=== PATIENT | male | born 1970 | race Caucasian/White ===

== ENCOUNTER 2025-02-13 06:26 | Day surgery (SDC) | payer BC ==
[2025-02-10 11:19] VITALS: BMI 26.3
[2025-02-13] MEDS ORDERED: Bupivacaine HCl 0.5%/Epinephrine 1:200,000/PF 30 ml Vial ONE (09:17)
[2025-02-13] MEDS ORDERED: CEFAZOLIN 2 GM VIAL ONE (09:18)
[2025-02-13] MEDS ORDERED: Lidocaine 1% PF 5 ML VIAL ONE (09:37)
[2025-02-13] MEDS ORDERED: Rocuronium Bromide 10 MG/ML (10ML VIAL) ONE (09:37)
[2025-02-13] MEDS ORDERED: PROPOFOL 20 ML ONE (09:37)
[2025-02-13] MEDS ORDERED: Ondansetron PF 4 MG/2 ML Vial ONE (09:37)
[2025-02-13] MEDS ORDERED: SUGAMMADEX SODIUM 200 MG/2 ML VIAL ONE (10:00)
[2025-02-13] MEDS ORDERED: Meperidine HCl/PF 25 MG (1 mL) VIAL ONE (12:05)
[2025-02-13] MEDS ORDERED: HYDROcodone/Acetaminophen 5/325 mg Tablet ONE (12:22)
== END 2025-02-13 13:10 | disposition home or self-care (01) ==
LOC: CSHSDC 06:26
PROVIDERS: ATTEND Surgery
PROC: 0YU64JZ Supplement Left Inguinal Region with Synthetic Substitute, Percutaneous Endoscopic Approach (ICD-10-PCS; principal; 2025-02-13)
DX: K40.31 Unilateral inguinal hernia, with obstruction, without gangrene, recurrent (principal); Z98.890 Other specified postprocedural states
CPT/HCPCS: 88302; C1781; J1100; J2175; J2250; J2405; J2704; J3010; S2900